=== PATIENT | female | born 1965 | race Two or more races ===

== ENCOUNTER 2018-11-18 16:25 | Emergency (ER) | payer MEDICAID ==
[~2018-11-18] VITALS: Ht 162.6 cm; Wt 70.8 kg
[2018-11-18 16:37] VITALS: BP 135/79
[2018-11-18] MEDS ORDERED: FLUCONAZOLE (100 MG) 100 MG TABLET PO ONE (17:00)
[2018-11-18] MEDS ORDERED: ACETAMINOPHEN ES 500 MG TABLET ONE (17:00)
[2018-11-18] MEDS ORDERED: ACETAMINOPHEN ES 500 MG TABLET PO ONE (17:00)
[2018-11-18] MEDS ORDERED: FLUCONAZOLE (100 MG) 100 MG TABLET ONE (17:01)
[2018-11-18] MEDS ORDERED: METFORMIN XR 500 MG TAB.SR.24H PO ONE (17:20)
[2018-11-18] MEDS ORDERED: METFORMIN 500 MG TABLET PO ONE (17:30)
== END 2018-11-18 17:32 | disposition home or self-care (01) ==
LOC: ER 16:25
DX: B37.3 Candidiasis of vulva and vagina (principal); E11.9 Type 2 diabetes mellitus without complications; Z59.0 Homelessness
CPT/HCPCS: 82962-TC

== ENCOUNTER 2021-04-07 08:06 | Emergency (ER) | payer OTHER ==
[~2021-04-07] VITALS: Ht 165.1 cm; Wt 55.3 kg
--- NOTE | 2021-04-07 08:28 | NUR ---
called to triage, no answer
--- NOTE | 2021-04-07 08:52 | NUR ---
UNABLE TO PROVIDE URINE SAMPLE AT THIS TIME. WILL TRY AGAIN LATER.
--- NOTE | 2021-04-07 08:54 | NUR ---
DR CHUA AT THE BEDSIDE
--- NOTE | 2021-04-07 08:54 | NUR ---
THE PATIENT BIBS WITH C/O PAINFUL URINATION AND BURNING SENSATION UPON URINATION. PATIENT AFEBRILE. NO BLADDER DISTENSION NOTED. WILL CONTINUE TO MONITOR THE PATIENT.
--- NOTE | 2021-04-07 08:54 | NUR ---
Ofe geller in [facility] - 04/07/21 at [address] PACHECO AT THE BEDSIDE
--- NOTE | 2021-04-07 09:19 | NUR ---
X-RAY TECH AT THE BEDSIDE
--- NOTE | 2021-04-07 09:24 | NUR ---
URINE COLLECTED AND SENT TO THE LAB
[2021-04-07 09:52] LABS: BILIRUBIN,URINE Negative (NEGATIVE); COLOR,URINE YELLOW (YELLOW); LEUKOCYTE ESTERASE ,URINE Negative (NEGATIVE); NITRITE, URINE Negative (NEGATIVE); PH,URINE 5.5 (5.0-8.0); PROTEIN,URINE Negative (NEGATIVE); UGLUCOSE >=1000 mg/dL (NEGATIVE); UROBILINOGEN,URINE 0.2 EU/dL (0.2)
--- NOTE | 2021-04-07 10:02 | NUR ---
THE PATIENT IS RESTING COMFORTABLY IN ER BED #10. DENIES HAVING ANY DISTRESS AT THIS TIME. WILL CONTINUE TO MONITOR THE PATIENT.
[2021-04-07] MEDS ORDERED: IBUP-1955 PO (11:18)
[2021-04-07] MEDS ORDERED: CYCL5TAB PO (11:18)
[2021-04-07 11:27] VITALS: BP 123/76
--- NOTE | 2021-04-07 11:27 | NUR ---
Patient discharged to home in stable condition. Written and verbal after care instructions given. Patient verbalizes understanding of instruction.
== END 2021-04-07 11:28 | disposition home or self-care (01) ==
LOC: ER 08:06
DX: M79.604 Pain in right leg (principal); Z59.00 Homelessness unspecified; Z79.899 Other long term (current) drug therapy
CPT/HCPCS: 73502; 73564-TC; 87086-TC

== ENCOUNTER 2025-03-12 10:25 | Emergency (ER) | payer MEDICAID, OTHER ==
[~2025-03-12] VITALS: Ht 157.5 cm; Wt 44.9 kg
[~2025-03-12 10:25] MED LIST: CYCL5TAB PO; IBUP-1955 PO
[2025-03-12] MEDS ORDERED: ACETAMINOPHEN 325 MG TABLET ONE (11:45)
[2025-03-12] MEDS: ACETAMINOPHEN 325 MG TABLET PO ONE (11:51)
[2025-03-12 11:52] VITALS: TEMP 98.1
[2025-03-12 12:38] VITALS: BP 123/84; O2SAT 98
== END 2025-03-12 12:15 | disposition home or self-care (01) ==
LOC: ER 10:31
DX: T40.411A Poisoning by fentanyl or fentanyl analogs, accidental (unintentional), initial encounter (principal); F19.10 Other psychoactive substance abuse, uncomplicated; Z59.00 Homelessness unspecified; Z87.891 Personal history of nicotine dependence; Y92.89 Other specified places as the place of occurrence of the external cause
CPT/HCPCS: 82962-TC